=== PATIENT | male | born 1955 | race Caucasian/White ===

== ENCOUNTER 2022-04-04 12:02 | Emergency (ER) | payer BC ==
[2022-04-04 12:21] VITALS: TEMP 99; BMI 24.0
[2022-04-04 15:11] VITALS: RESP 18
[2022-04-04] MEDS ORDERED: SODIUM CHLORIDE 1,000 ML IV STA (15:15)
[2022-04-04 15:25] LABS: VENOUS BASE EXCESS 1.1 mmol/L (-2-2); VENOUS PCO2 47.6 mmHg (38-52); VENOUS PH 7.371 (7.310-7.410)
[2022-04-04 15:27] LABS: BASO % 0.3 % (0-2.0); EOS % 0.1 % (0-4.5); HEMATOCRIT 39.4 % (35.4-49); HEMOGLOBIN 12.9 GM/dL (11.7-16.9); LYMPH % 10.7 % (8-40); MCHC 32.7 g/dl (32.0-35.9); MEAN CELL VOLUME 82.4 fl (80-96); MEAN PLT VOLUME 8.9 fl (7.5-11.1); MONO % 4.8 % (3.8-10.2); NEUT % 84.1 % (42.8-82.8); PLATELET COUNT 172 10^3/uL (134-434); RBC 4.79 M/mm3 (4.00-5.60); RDW 17.8 % (11.9-15.9); WHITE BLOOD COUNT 10.4 K/mm3 (4.0-10.0)
[2022-04-04 15:44] LABS: BLOOD UREA NITROGEN 22.9 mg/dL (7-18); CALCIUM 8.7 mg/dL (8.5-10.1)
[2022-04-04 15:48] LABS: PHOSPHOROUS 3.1 mg/dL (2.5-4.9)
[2022-04-04 15:49] LABS: BILIRUBIN,TOTAL 0.4 mg/dL (0.2-1); TOT PROT 6.2 g/dl (6.4-8.2)
[2022-04-04 17:11] LABS: PH,URINE 5.5 (5.0-8.0); URINE APPEARANCE CLEAR; URINE BILIRUBIN NEGATIVE (NEGATIVE); URINE COLOR YELLOW; URINE GLUCOSE (UA) 3+ (NEGATIVE); URINE KETONE NEGATIVE (NEGATIVE); URINE LEUK ESTERASE NEGATIVE (NEGATIVE); URINE NITRITE NEGATIVE (NEGATIVE); URINE PROTEIN NEGATIVE (NEGATIVE); URINE UROBILINOGEN 0.2 mg/dL (0.2-1.0)
[2022-04-04] MEDS ORDERED: NIFEdipine E.R 60 MG TABLET PO ONE ×2 (18:46→18:50)
[2022-04-04 18:57] VITALS: BP 180/72; PULSE 62
== END 2022-04-04 20:11 | disposition home or self-care (01) ==
LOC: JER 12:02
PROC: 3E0337Z Introduction of Electrolytic and Water Balance Substance into Peripheral Vein, Percutaneous Approach (ICD-10-PCS; principal; 2022-04-04)
DX: U07.1 COVID-19 (principal)
CPT/HCPCS: 0241U-QW; 36415; 70450-TC; 71045-TC-FY; 80053; 81003; 82010; 82803; 82962; 83036; 83735; 84100; 85025; 87086; 93005; 93010; 99285-25